=== PATIENT | male | born 1935 | race Caucasian/White ===

== ENCOUNTER 2019-07-16 14:11 | Outpatient (CLI) | payer MEDICARE, SELFPAY ==
--- NOTE | ~2019-07-16 | XR_ITS ---
XR knee RT min 4V, XR knee LT min 4V 07/16/2019 15:08 Indication: Osteoarthritis. Procedure: 4 views of each knee Comparison: No prior studies for comparison. Findings: There is osteoarthritis of the knees, most advanced in the medial and patellofemoral compar tments. Degenerative changes more advanced in the left knee. No acute fracture or traumatic malalignm ent. Small joint effusions. Impression: 1: Bilateral osteoarthritis of the knees, left greater than right. 2: Small effusions. Reviewed, dictated and finalized at location A. Impression: 1: Bilateral osteoarthritis of the knees, left greater than right. 2: Small effusions. Impression: 1: Bilateral osteoarthritis of the knees, left greater than right. 2: Small effusions.
--- NOTE | ~2019-07-16 | XR_ITS ---
EXAMINATION: XR hand BI arthritis min 3V DATE: 07/16/2019 15:08 INDICATION: Unspecified osteoarthritis, unspecified site. TECHNIQUE: 4 views of the right hand and 4 views of the left hand on 7 radiographs were obtained. COMPARISON: None. FINDINGS: RIGHT HAND: There is radial subluxation of third proximal phalanx with respect to the metacarpal. No fracture. There is mild osteoarthritis of triscaphe joint and first carpometacarpal joint. There is s evere osteoarthritis of third metacarpophalangeal joint and moderate osteoarthritis of second metacar pophalangeal joint. There is mild osteoarthritis of first and fourth metacarpophalangeal joints and m ost of the interphalangeal joints. LEFT HAND: Bone alignment is normal. No fracture. There is mild osteoarthritis of triscaphe joint and first carpometacarpal joint. There is moderate osteoarthritis of second and third metacarpophalangea l joints. There is mild osteoarthritis of first and fourth metacarpophalangeal joints and most of the interphalangeal joints. IMPRESSION: 1. Polyarticular osteoarthritis. Reviewed, dictated and finalized at location A.
--- NOTE | ~2019-07-16 | XR_ITS ---
EXAMINATION: XR hip BI 2V w AP pelvis DATE: 07/16/2019 15:08 INDICATION: Unspecified osteoarthritis, unspecified site. TECHNIQUE: An anteroposterior view of the pelvis and 2 views each hip were obtained. COMPARISON: None. FINDINGS: There is dextroscoliosis and severe spondylosis of lumbar spine. No fracture. There is mild osteoarthritis of the hips. IMPRESSION: 1. Mild osteoarthritis of the hips. Reviewed, dictated and finalized at location A.
[2019-07-16 14:36] LABS: Hematocrit 40.6 % (42.0-52.0); Mean Corpuscular Hemoglobin 28.6 pg (26-34); Mean Corpuscular Volume 89.4 fl (80-100); Mean Platelet Volume 10.3 fl (7.4-10.4); Platelet Count Result 290 k/mm3 (150-375); Red Blood Count 4.54 M/mm3 (4.6-6.20); Red Cell Distribution Width 12.8 % (11.5-14.5); White Blood Count 7.5 K/mm3 (4.5-10.0)
[2019-07-16 16:54] LABS: Alanine Aminotransferase 13 U/L (4-50); Albumin Level 4.8 g/dL (3.5-5.1); Alkaline Phosphatase 88 U/L (38-126); Aspartate Amino Transferase 28 U/L (17-59); Bilirubin,Total 0.2 mg/dL (0.2-1.3); Blood Urea Nitrogen 23 mg/dL (9-20); CRP 2.7 mg/dL (<1.0); Calcium 9.3 mg/dL (8.4-10.2); Carbon Dioxide 26 mmol/L (22-30); Chloride 102 mmol/L (98-107); Estimated Glomerular Filt Rate > 60; Glucose 99 mg/dL (75-110); Potassium 4.5 mmol/L (3.4-5.0); Sodium 135 mmol/L (137-145); Uric Acid 5.4 mg/dL (3.5-8.5)
[2019-07-16 16:55] LABS: Add Urine Microscopic? NO; Appearance Urine Clear (Clear); Bilirubin Urine Negative (Negative); Blood Urine Negative (Negative); Color Urine Yellow (Yellow); Glucose Urine UA Negative (Negative); Ketones Urine Negative (Negative); Leukocyte Esterase Ur Negative LEU/UL (Negative); Nitrate Urine Negative (Negative); Protein Urine Negative (Negative); Specific Grav Ur 1.019 (1.001-1.035); Urobilinogen Urine Negative mg/dL (<2.0)
[2019-07-16 17:19] LABS: Erythrocyte Sedimentation Rate 25 mm/hr (0-20)
[2019-07-19 11:55] LABS: Anti Cyclic Citrullinated Pept <16 Units (<20)
== END 2019-07-16 14:12 | disposition home or self-care (01) ==
PROVIDERS: Visit Provider Internal Medicine
DX: M25.9 Joint disorder, unspecified (principal); M16.0 Bilateral primary osteoarthritis of hip; M17.0 Bilateral primary osteoarthritis of knee; M25.461 Effusion, right knee; M25.462 Effusion, left knee
CPT/HCPCS: 36415; 73130; 73521; 73564; 80053; 81003; 84550; 85027; 85652; 86140; 86200

== ENCOUNTER 2021-01-04 13:06 | Outpatient (CLI) | payer MEDICARE, SELFPAY ==
[2021-01-04 13:17] LABS: Hematocrit 43.1 % (37.0-46.0); Hemoglobin 14.3 g/dL (12.4-15.3); Mean Corpuscular HGB Conc 33.2 g/dL (32.0-36.0); Mean Corpuscular Volume 90.5 fL (78.0-102.0); Mean Platelet Volume 10.5 fl (8.7-11.0); Platelet Count Result 232 K/mm3 (150-420); Red Blood Count 4.76 M/mm3 (4.70-6.10); Red Cell Distribution Width 12.3 % (11.6-14.4); White Blood Count 5.2 K/mm3 (4.8-10.8)
[2021-01-04 14:38] LABS: Alanine Aminotransferase 27 U/L (16-63); Albumin Level 4.1 g/dL (3.4-5.0); Alkaline Phosphatase 83 U/L (46-116); Anion Gap 12 mmol/L (8-16); Aspartate Amino Transferase 27 U/L (15-37); Bilirubin,Total 0.3 mg/dL (0.00-1.00); Blood Urea Nitrogen 22 mg/dL (7-18); Calcium 9.5 mg/dL (8.5-10.1); Carbon Dioxide 32 mmol/L (21-32); Chloride 99 mmol/L (98-108); Estimated Glomerular Filt Rate > 60; Glucose 93 mg/dL (70-99); Osmolality Calculated 299 mOsm/kg (285-295); Potassium 4.2 mmol/L (3.5-5.1); Prostate Specific Antigen 1.2 ng/mL (< OR = 4.0); Sodium 143 mmol/L (136-145); Total Protein 7.3 g/dL (6.4-8.2)
== END 2021-01-04 13:07 | disposition home or self-care (01) ==
LOC: CHSLAB 13:08
PROVIDERS: PCP Family Medicine; Visit Provider Family Medicine
DX: D64.9 Anemia, unspecified (principal); I10 Essential (primary) hypertension; R35.1 Nocturia; Z12.5 Encounter for screening for malignant neoplasm of prostate
CPT/HCPCS: 36415; 80053; 84153; 85027; G0103

== ENCOUNTER 2021-06-07 10:41 | Outpatient (CLI) | payer MEDICARE, SELFPAY ==
[2021-06-07 10:52] LABS: Hematocrit 42.2 % (37.0-46.0); Hemoglobin 13.9 g/dL (12.4-15.3); Mean Corpuscular HGB Conc 32.9 g/dL (32.0-36.0); Mean Corpuscular Hemoglobin 29.6 pg (27.0-31.0); Mean Platelet Volume 10.5 fl (8.7-11.0); Platelet Count Result 214 K/mm3 (150-420); Red Blood Count 4.69 M/mm3 (4.70-6.10); Red Cell Distribution Width 12.6 % (11.6-14.4); White Blood Count 4.8 K/mm3 (4.8-10.8)
== END 2021-06-07 10:42 | disposition home or self-care (01) ==
LOC: CHSLAB 10:45
PROVIDERS: PCP Family Medicine; Visit Provider Family Medicine
DX: D64.9 Anemia, unspecified (principal)
CPT/HCPCS: 36415; 85027

== ENCOUNTER 2021-07-02 18:38 | Emergency (ER) | payer MEDICARE, SELFPAY ==
[2021-07-02] VITALS (7 sets, daily range): BP systolic 134–153; BP diastolic 51–60; PULSE 75–82; RESP 15–24; TEMP 36.6; O2SAT 95–99
--- NOTE | ~2021-07-02 | XR_ITS ---
EXAMINATION: XR chest 2V 07/02/2021 19:21 INDICATION: Upper chest tightness PROCEDURE: 2 view chest COMPARISON: No prior studies for comparison. FINDINGS: The lungs are clear. The cardiomediastinal silhouette is within normal limits. There are no pleural effusions. There is no pneumothorax suspected. There is moderate thoracic spondylosis. IMPRESSION: 1: NO ACUTE CARDIOPULMONARY DISEASE. Reviewed, dictated and finalized at location A.
--- NOTE | ~2021-07-02 | CT_ITS ---
EXAMINATION: CTA chest PE protocol DATE: 07/02/2021 20:17 CDT INDICATION: Chest tightness. Elevated d-dimer. TECHNIQUE: Computed tomographic angiography (CTA) of the chest was performed with 100 mL Omnipaque-35 0 intravenous contrast. The dose-length product was 452.68 mGy-cm. Maximum intensity projection 3D-re constructions of the aorta and other arteries were constructed by the technologist on a separate work station. Automated exposure control and iterative reconstruction technique were employed. COMPARISON: Chest x-ray dated 07/02/2021. FINDINGS: Study is technically adequate without evidence for pulmonary embolism. There is atheroscler osis of the aorta without aneurysm. There is atherosclerosis of the coronary arteries. Heart size nor mal. No significant pleural or pericardial effusion. No thoracic lymphadenopathy. There are bilateral renal cysts, largest in the left kidney measuring 4.8 cm. There are a few subtle groundglass densiti es in the left upper lobe. There is dependent atelectasis. No endobronchial lesions. No pneumothorax. Moderate thoracic spondylosis. IMPRESSION: 1. No evidence for pulmonary embolism. 2: Subtle groundglass opacities of the left upper lobe which may represent sequela of acute or prior infectious/inflammatory process or small airways disease. Reviewed, dictated and finalized at location A. IMPRESSION: 1. No evidence for pulmonary embolism. 2: Subtle groundglass opacities of the left upper lobe which may represent seq uela of acute or prior infectious/inflammatory process or small airways disease .
--- NOTE | 2021-07-02 18:45 | ED.CHESTPAIN ---
HPI - Chest Pain General Chief Complaint: Chest Pain Stated Complaint: chest pain Time Seen by Provider: 07/02/21 18:45 Source: patient and family Mode of arrival: ambulatory Limitations: no limitations History of Present Illness HPI narrative: Patient states he was just doing some normal chores around the house at noon and had some chest tightness seemed to go to his back, he had some nausea, shortness of breath. No diaphoresis no vomiting, at noon his pain was an 8/10 now it has come down to 5. He had a 2nd episode while he was at a restaurant for dinner he had happened at rest with the same kind of symptoms of tightness and feeling queasy with some mild shortness of breath. He decided to drive here to the hospital for further evaluation and by the time he arrived it had subsided to where he just feels a little short of breath now. complaint: chest pain Onset (ago): hour(s) (2) Timing of current episode: episodic Prior episodes: Yes Onset: during exertion Pain location: substernal Pain radiation: back Pain scale (0-10): 5 Quality: tightness Relieving factors: rest Exacerbating factors: exertion Risk Factors Coronary artery disease risk factors: hyperlipidemia and hypertension Thoracic aortic dissection risk factors: none Related Data Home Medications Medication Instructions Recorded Confirmed aspirin 81 mg tablet,delayed 81 mg PO DAILY 05/05/19 07/02/21 release (Adult Low Dose Aspirin) calcium carbonate 600 mg calcium 600 mg PO DAILY 05/05/19 07/02/21 (1,500 mg) tablet (Calcium) cyanocobalamin (vitamin B-12) 100 mcg subcut DAILY 05/05/19 07/02/21 1,000 mcg/mL injection kit (B-12 Compliance) ferrous sulfate 325 mg (65 mg 325 mg PO DAILY 05/05/19 07/02/21 iron) tablet (Feosol) Allergies Allergy/AdvReac Type Severity Reaction Status Date / Time No Known Allergies Allergy Verified 07/02/21 18:55 Review of Systems Review of Systems: All systems reviewed & are unremarkable except as noted in HPI and below PMFSH Past Medical History Medical History (Updated 07/02/21 @ 20:34 by Levy Jeffrey MD) Anemia BPH associated with nocturia Hypertension Osteoarthritis Family History Family History Mother Arthritis Heart failure Father Enlarged heart Social History Social History Tobacco type: cigarettes Additional smoking assessment comments: Quit 1999. 40 pk yr history Exam Const: General: healthy appearing, no acute distress and alert Nutritional Appearance: well nourished and thin Orientation/consciousness: patient oriented x3 Limitations: no limitations HENMT: Head: normal to inspection Ears: external ears normal General nose exam: Normal external nose present Mouth: Yes moist mucous membranes Eyes: Conjunctivae: conjunctivae normal Pupils: Equal, round and reactive pupils present EOM: EOMs intact bilaterally Neck: Neck: normal visual inspection Chest: Chest palpation & inspection: normal inspection of the chest and no tenderness Resp: Effort & Inspection: normal respiratory effort Auscultation: crackles on the right (mild) at the base Cardio: Rate: regular rate Rhythm: regular rhythm GI: GI Palp: Yes Soft to palpation and No Tenderness to palpation present (GI) Auscultation: normal bowel sounds Back/Spine/Pelvis: Cervical Spine: cervical ROM normal Thoracic/Lumbar Spine: thoraco-lumbar ROM normal Skin: General skin exam: normal color Rashes: no rashes Neuro: General: patient oriented x3, moves all extremities, no focal motor deficits and CN's II-XI intact bilaterally Speech: normal speech Gait exam (Neuro): Normal gait present Extrem: General: normal to inspection and no clubbing, cyanosis or edema Psych: Mental Status: mental status grossly normal Affect: normal affect Attitude: cooperative Course Vital Signs Vital signs: Vital S
--- NOTE | 2021-07-02 18:46 | ECG_ITS ---
Measurements Intervals Rickman Rate: 82 P: 33 MD: 175 QRS: -68 QRSD: 146 T: 34 QT: 380 QTc: 445 Interpretive Statements SINUS RHYTHM RIGHT BUNDLE BRANCH BLOCK LEFT ANTERIOR FASCICULAR BLOCK BASELINE ARTIFACT- I, II, III, AVR, V1, V3-V6 ABNORMAL ECG Electronically Signed On 07-02-2021 21:08:08 CDT by Roderick Corado D.O.
[2021-07-02] MEDS: ASPIRIN 81 MG CHEWABLE TABLET 243 MG PO (19:12)
[2021-07-02 19:21] LABS: Hematocrit 39.6 % (37.0-46.0); Hemoglobin 13.1 g/dL (12.4-15.3); Mean Corpuscular HGB Conc 33.1 g/dL (32.0-36.0); Mean Corpuscular Volume 90.6 fL (78.0-102.0); Mean Platelet Volume 10.3 fl (8.7-11.0); Platelet Count Result 170 K/mm3 (150-420); Red Blood Count 4.37 M/mm3 (4.70-6.10); Red Cell Distribution Width 12.5 % (11.6-14.4); White Blood Count 4.6 K/mm3 (4.8-10.8)
[2021-07-02 19:34] LABS: Prothrombin Time 10.2 Seconds (9.50-12.10)
[2021-07-02 19:38] LABS: Alanine Aminotransferase 21 U/L (16-63); Albumin Level 3.7 g/dL (3.4-5.0); Alkaline Phosphatase 63 U/L (46-116); Anion Gap 5 mmol/L (8-16); Aspartate Amino Transferase 15 U/L (15-37); Bilirubin,Total 0.2 mg/dL (0.00-1.00); Blood Urea Nitrogen 16 mg/dL (7-18); Calcium 8.7 mg/dL (8.5-10.1); Carbon Dioxide 30 mmol/L (21-32); Chloride 103 mmol/L (98-108); Estimated Glomerular Filt Rate > 60; Glucose 110 mg/dL (70-99); Osmolality Calculated 288 mOsm/kg (285-295); Potassium 3.8 mmol/L (3.5-5.1); Sodium 138 mmol/L (136-145); Total Protein 6.6 g/dL (6.4-8.2); Troponin I 10.1 ng/L (0.00-60.4)
[2021-07-02 19:40] LABS: D Dimer 0.62 mg/L (0.19-0.50)
[2021-07-02 19:52] LABS: Band Neutrophils Percent 0 % (0-6); Eosinophils Absolute Manual 0.13 K/mm3 (0.02-0.5); Eosinophils Percent Manual 3 % (1-6); Lymphocytes Absolute Manual 0.41 K/mm3 (1.1-4.5); Lymphocytes Percent Manual 9 % (18-44); Monocytes Absolute Manual 0.64 K/mm3 (0.1-0.90); Monocytes Percent Manual 14 % (3-9); Neutrophils Percent Manual 74 % (46-73); Platelet Estimate Adequate (Adequate); Total Cells Counted 100
== END 2021-07-02 20:47 | disposition home or self-care (01) ==
PROVIDERS: Emergency Provider Emergency Medicine; PCP Family Medicine
DX: I20.9 Angina pectoris, unspecified (principal); I10 Essential (primary) hypertension; Z87.891 Personal history of nicotine dependence
CPT/HCPCS: 36415; 71046; 71275; 80053; 84484; 85025; 85380; 85610; 93005; 99284; A9270; Q9967

== ENCOUNTER 2021-07-12 15:04 | Outpatient (CLI) | payer MEDICARE, SELFPAY ==
[2021-07-12 15:15] LABS: Hematocrit 39.2 % (37.0-46.0); Hemoglobin 13.3 g/dL (12.4-15.3); Mean Corpuscular HGB Conc 33.9 g/dL (32.0-36.0); Mean Corpuscular Hemoglobin 29.8 pg (27.0-31.0); Mean Corpuscular Volume 87.7 fL (78.0-102.0); Mean Platelet Volume 10.5 fl (8.7-11.0); Platelet Count Result 193 K/mm3 (150-420); Red Blood Count 4.47 M/mm3 (4.70-6.10); Red Cell Distribution Width 12.4 % (11.6-14.4); White Blood Count 5.7 K/mm3 (4.8-10.8)
[2021-07-12 15:45] LABS: Thyroid Stimulating Hormone Reflex 4.01 u/IU/mL (0.36-3.74)
[2021-07-12 15:53] LABS: Free T4 Free Thyroxine Reflex 1.05 ng/dL (0.76-1.46)
[2021-07-12 16:03] LABS: Alanine Aminotransferase 30 U/L (16-63); Albumin Level 3.8 g/dL (3.4-5.0); Alkaline Phosphatase 70 U/L (46-116); Anion Gap 8 mmol/L (8-16); Aspartate Amino Transferase 28 U/L (15-37); Bilirubin,Total 0.3 mg/dL (0.00-1.00); Blood Urea Nitrogen 27 mg/dL (7-18); Calcium 8.6 mg/dL (8.5-10.1); Carbon Dioxide 26 mmol/L (21-32); Chloride 104 mmol/L (98-108); Estimated Glomerular Filt Rate > 60; Glucose 105 mg/dL (70-99); Osmolality Calculated 291 mOsm/kg (285-295); Potassium 4.4 mmol/L (3.5-5.1); Total Protein 6.9 g/dL (6.4-8.2); Vitamin B12 1306 pg/mL (193-986)
[2021-07-12 16:08] LABS: Sodium 138 mmol/L (136-145)
[2021-07-13 14:22] LABS: Folic Acid > 24.0 ng/mL (8.6->20)
== END 2021-07-12 15:05 | disposition home or self-care (01) ==
LOC: CHSLAB 15:06
PROVIDERS: PCP Family Medicine; Visit Provider Family Medicine
DX: U09.9 Post COVID-19 condition, unspecified (principal); E11.9 Type 2 diabetes mellitus without complications; E53.8 Deficiency of other specified B group vitamins
CPT/HCPCS: 36415; 80053; 82607; 82746; 84439; 84443; 85027

== ENCOUNTER 2021-08-01 12:10 | Outpatient (CLI) | payer MEDICARE, SELFPAY ==
--- NOTE | ~2021-08-01 | XR_ITS ---
XR chest 2V DATE: 08/01/2021 12:25 INDICATION: Cough TECHNIQUE: PA and lateral views COMPARISON: 07/02/2021 CT pulmonary scan 07/02/2021 PA and lateral chest FINDINGS: Normal heart size. Aortic calcification and mild tortuosity. No hilar or mediastinal enlarg ement. No pulmonary infiltrate or consolidation, pleural effusion or pulmonary vascular congestion or pneumo thorax is detected. Degenerative changes of the lower cervical, thoracic and particularly the upper lumbar spine. IMPRESSION: No active cardiopulmonary disease Reviewed, dictated and finalized at location B.
[2021-08-01 12:45] LABS: Add Urine Microscopic? NO; Appearance Urine Clear (Clear); Bilirubin Urine Negative (Negative); Blood Urine Negative (Negative); Color Urine Yellow (Yellow); Glucose Urine UA Negative (Negative); Ketones Urine Negative (Negative); Leukocyte Esterase Ur Negative LEU/UL (Negative); Nitrate Urine Negative (Negative); Protein Urine Negative (Negative); Specific Grav Ur 1.015 (1.010-1.020); Urobilinogen Urine 0.2 mg/dL (0.2-1.0)
[2021-08-01 13:23] LABS: Iron 94 ug/dL (65-175); Magnesium 1.9 mg/dL (1.8-2.4); Vitamin B12 1372 pg/mL (193-986)
[2021-08-05 07:30] LABS: Vitamin D 25 Hydroxy 38 ng/mL (30-100)
== END 2021-08-01 12:11 | disposition home or self-care (01) ==
LOC: CHSIMG 12:12
PROVIDERS: PCP Family Medicine; Visit Provider Nurse Practitioner Family
DX: R05.9 Cough, unspecified (principal); D64.9 Anemia, unspecified; R53.83 Other fatigue; Z79.899 Other long term (current) drug therapy
CPT/HCPCS: 36415; 71046; 81003; 82306; 82607; 83540; 83735

== ENCOUNTER 2021-08-15 08:01 | Outpatient (CLI) | payer MEDICARE, SELFPAY ==
--- NOTE | 2021-08-15 08:07 | EST_ITS ---
Patient Info Name: Dagoberto Hall Age: 85 years : 1935 Gender: Male Ht: 69 in Wt: 160 lbs BSA: 1.88 m2 HR: 66 bpm BP: 133 / 59 mmHg Heart Rhythm: Sinus Rhythm Technical Quality: Good Exam Date: 08/15/2021 8:29 AM Exam Location: [facility] Patient Status: Outpatient Admit Date: 08/15/2021 Staff Ordering Physician: Claudette Sanches NP Attending Provider: Claudette Sanches NP Exercise Technologist: Belem Long CRT Exercise Physician: Gisselle Lopes CEP Exam Type: CA stress test treadmill Study Info Indications SOB - A treadmill exercise stress test was performed. History/Risk Factors Hypertension: Yes Family History: Coronary Artery Disease History/Risk Factors Family History. Hypertension. Half-Way COVID. Summary 1. 1. Negative Anjel exercise stress test for ischemic ST changes by ECG criteria. 2. 2. Poor functional capacity, achieving 4 METs of workload. 3. 3. Hypertensive response to exercise. 4. 4. Appropriate HR response to exercise. 5. 5. Appropriate HR recovery at 1 minute post exercise. 6. 6. No imaging with stress testing. Protocol: Anjel Stress ECG Details Stage: REST Duration (min): 1 min : 5 sec Speed (mph): 0.0 Grade (%): 0 HR (bpm): 66 SBP (mmHg): 133 DBP (mmHg): 59 METS: --- Stage: REST Duration (min): 5 min : 55 sec Speed (mph): 0.0 Grade (%): 0 HR (bpm): 76 SBP (mmHg): 133 DBP (mmHg): 59 METS: --- Stage: STAGE 1 Duration (min): 1 min : 0 sec Speed (mph): 1.7 Grade (%): 10 HR (bpm): 95 SBP (mmHg): 133 DBP (mmHg): 59 METS: --- Stage: STAGE 1 Duration (min): 2 min : 0 sec Speed (mph): 1.7 Grade (%): 10 HR (bpm): 113 SBP (mmHg): 133 DBP (mmHg): 59 METS: --- Stage: STAGE 1 Duration (min): 2 min : 59 sec Speed (mph): 1.7 Grade (%): 10 HR (bpm): 122 SBP (mmHg): 216 DBP (mmHg): 60 METS: --- Stage: RECOVERY Duration (min): 1 min : 0 sec Speed (mph): 0.0 Grade (%): 0 HR (bpm): 112 SBP (mmHg): 216 DBP (mmHg): 60 METS: --- Stage: RECOVERY Duration (min): 2 min : 0 sec Speed (mph): 0.0 Grade (%): 0 HR (bpm): 86 SBP (mmHg): 219 DBP (mmHg): 70 METS: --- Stage: RECOVERY Duration (min): 3 min : 0 sec Speed (mph): 0.0 Grade (%): 0 HR (bpm): 72 SBP (mmHg): 219 DBP (mmHg): 70 METS: --- Stage: RECOVERY Duration (min): 4 min : 0 sec Speed (mph): 0.0 Grade (%): 0 HR (bpm): 80 SBP (mmHg): 219 DBP (mmHg): 70 METS: --- Stage: RECOVERY Duration (min): 5 min : 0 sec Speed (mph): 0.0 Grade (%): 0 HR (bpm): 79 SBP (mmHg): 190 DBP (mmHg): 67 METS: --- Stage: RECOVERY Duration (min): 6 min : 0 sec Speed (mph): 0.0 Grade (%): 0 HR (bpm): 80 SBP (mmHg): 190 DBP (mmHg): 67 METS: --- Stage:
== END 2021-08-15 08:02 | disposition home or self-care (01) ==
LOC: CHSCARD 08:03
PROVIDERS: PCP Nurse Practitioner Family; Visit Provider Nurse Practitioner Family
DX: U09.9 Post COVID-19 condition, unspecified (principal); R53.1 Weakness; R53.83 Other fatigue; R06.02 Shortness of breath
CPT/HCPCS: 93017

== ENCOUNTER 2022-04-10 08:36 | Outpatient (CLI) | payer MEDICARE, SELFPAY ==
--- NOTE | 2022-04-12 10:37 | WPDHOLTEREM ---
Holter/Event Monitor Holter/Event Monitor Date of procedure: 04/10/22 Holter/Event Procedure: 48 Hr Holter Monitor Indications: Tachycardia Conclusion: 1. 48 hour holter monitor on 04/10/22. 2. Predominant rhythm is sinus rhythm. HR range 48-130 bpm; average HR 76 bpm. 3. There are 99 premature supraventricular complexes and 6 supraventricular couplets. There are 6 episodes of atrial tachycardia/SVT, fastest at 150 bpm and longest lasting 8 beats. 4. No premature ventricular complexes. No ventricular tachycardia. 5. No sinoatrial or atrioventricular blocks. No significant pauses greater than 2 seconds. 6. No symptoms available for correlation.
== END 2022-04-10 08:37 | disposition home or self-care (01) ==
LOC: CHSCARD 08:37
PROVIDERS: PCP Family Medicine; Visit Provider Family Medicine
DX: R00.0 Tachycardia, unspecified (principal)
CPT/HCPCS: 93225; 93226

== ENCOUNTER 2022-06-26 14:49 | Emergency (ER) | payer MEDICARE, SELFPAY ==
--- NOTE | ~2022-06-26 | XR_ITS ---
XR abdomen/kub 1V 06/26/2022 15:23 Indication: Patient swallowed a screw. Procedure: KUB Comparison: No prior studies for comparison. Findings: Severe lumbar spondylosis. Nonobstructive bowel gas pattern. No radiopaque foreign bodies i dentified. There is a small nonobstructing right renal stone. Visualized lung bases are unremarkable. Impression: 1: Right nephrolithiasis. Reviewed, dictated and finalized at location B. Impression: 1: Right nephrolithiasis.
--- NOTE | ~2022-06-26 | XR_ITS ---
EXAMINATION: XR chest 2V Exam Date/Time: 06/26/2022 15:08 CDT HISTORY: SWALLOWED A SCREW; REVIEW FOR FOREIGN BODY. Comparison: 08/01/2021. RESULT: Lines, tubes, and devices: None. Lungs and pleura: Senescent change, otherwise clear. Cardiomediastinal silhouette: Stable. Other: No acute osseous or upper abdominal finding. IMPRESSION: No acute cardiopulmonary process. No radiopaque foreign body. Reviewed, dictated and finalized at location K.
[2022-06-26 14:54] VITALS: BP 132/67; PULSE 100; RESP 20; TEMP 36.8; O2SAT 96
--- NOTE | 2022-06-26 15:42 | ED.GENADULT ---
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 When he went to grab the screws to install them he only had 2 screws present and is concerned that he might have swallowed 1. He does not recall any pain in his throat, or anywhere else, does not hurt anywhere, is having no difficulty breathing, just wants to make sure he did not swallow it. No other complaints. Related Data Home Medications Medication Instructions Recorded Confirmed aspirin 81 mg tablet,delayed 81 mg PO DAILY 05/05/19 08/01/21 release (Adult Low Dose Aspirin) calcium carbonate 600 mg calcium 600 mg PO DAILY 05/05/19 08/01/21 (1,500 mg) tablet (Calcium) cyanocobalamin (vitamin B-12) 100 mcg subcut DAILY 05/05/19 08/01/21 1,000 mcg/mL injection kit (B-12 Compliance) ferrous sulfate 325 mg (65 mg 325 mg PO DAILY 05/05/19 08/01/21 iron) tablet (Feosol) enalapril maleate 20 mg tablet 20 mg PO DAILY 06/26/22 multivit with minerals-iron 18 1 tablet PO DAILY 06/26/22 06/26/22 mg-folic ac 400 mcg-vit K 25 mcg tablet (Adults Multivitamin) pravastatin 20 mg tablet 20 mg PO DAILY 06/26/22 Allergies Allergy/AdvReac Type Severity Reaction Status Date / Time No Known Allergies Allergy Verified 06/26/22 15:13 Review of Systems Review of Systems: All systems reviewed & are unremarkable except as noted in HPI and below ( HPI) PMFSH Past Medical History Medical History Anemia BPH associated with nocturia Hypertension Osteoarthritis Family History Family History Mother Arthritis Heart failure Father Enlarged heart Social History Social History Smoking status: Former smoker Tobacco type: cigarettes Additional smoking assessment comments: Quit 2000. 40 pk yr history Lack of Transportation: No Lack of Food: Never True Current Housing: I Have Housing Concerned About Future Housing: No Difficulty Paying Gas/Electric Bills: No Difficulty Paying for Meds: No Currently Unemployed: No Education: High School Diploma/GED Difficulty w/ Childcare or Family Care: No Exam Narrative: pleasant, well-appearing child, appropriately interactive, no acute distress Const: General: cooperative, healthy appearing, comfortable, no acute distress, well developed, alert, awake and Physically active Orientation/consciousness: patient oriented x3 HENMT: Head: normal to inspection, normocephalic and atraumatic Ears: hearing grossly normal bilaterally and external ears normal Face/Nose/Sinus: Normal external nose present, Normal nares present, Normal nasal mucous membranes and turbinates present and normal facial exam Face and sinus: normal facial exam Mouth: Yes Normal oral and palatal mucosa present, Yes lip normal, Yes tongue normal, Yes oropharynx normal and Yes moist mucous membranes Teeth and gingiva: dentition normal Throat: posterior oropharynx normal and tonsils normal ( erythematous) Eyes: General: appearance normal, both eyes and all related structures Alignment and Position: alignment normal and position normal Periorbital: periorbital findings normal Eyelids: eyelids normal Conjunctivae: conjunctivae normal Sclera: sclerae normal Cornea: corneas normal Pupils: Equal, round and reactive pupils present EOM: EOMs intact bilaterally Neck: Neck: normal visual inspect
== END 2022-06-26 16:07 | disposition home or self-care (01) ==
PROVIDERS: Emergency Provider Emergency Medicine; PCP Pediatrics
DX: Z03.821 Encounter for observation for suspected ingested foreign body ruled out (principal); I10 Essential (primary) hypertension; Z87.891 Personal history of nicotine dependence
CPT/HCPCS: 71046; 74018; 99283

== ENCOUNTER 2022-10-11 15:41 | Outpatient (CLI) | payer MEDICARE, SELFPAY ==
[2022-10-11 16:15] LABS: Hematocrit 37.2 % (42.0-52.0); Hemoglobin 12.1 g/dL (14.0-18.0); Mean Corpuscular HGB Conc 32.5 g/dl (32-36); Mean Corpuscular Hemoglobin 29.4 pg (26-34); Mean Corpuscular Volume 90.5 fl (80-100); Mean Platelet Volume 10.5 fl (7.4-10.4); Platelet Count Result 216 k/mm3 (150-375); Red Blood Count 4.11 M/mm3 (4.6-6.20); Red Cell Distribution Width 13.1 % (11.5-14.5); White Blood Count 4.6 K/mm3 (4.5-10.0)
[2022-10-11 16:34] LABS: Alanine Aminotransferase 17 U/L (6-50); Albumin Level 4.1 g/dL (3.5-5.1); Alkaline Phosphatase 46 U/L (38-126); Anion Gap 6 mmol/L (8-16); Aspartate Amino Transferase 28 U/L (17-59); Bilirubin,Total 0.5 mg/dL (0.2-1.3); Blood Urea Nitrogen 25 mg/dL (9-20); CRP 1.1 mg/dL (<1.0); Calcium 8.9 mg/dL (8.4-10.2); Carbon Dioxide 28 mmol/L (22-30); Chloride 105 mmol/L (98-107); Estimated Glomerular Filt Rate > 60; Glucose 101 mg/dL (65-110); Potassium 3.8 mmol/L (3.4-5.0); Sodium 139 mmol/L (137-145)
[2022-10-11 16:39] LABS: Erythrocyte Sedimentation Rate 19 mm/hr (0-20)
[2022-10-16 17:22] LABS: Immunoglobulin A 152 mg/dL (70-320); TTG IGA AB <1.0 U/mL (<15.0)
[2022-10-18 22:42] LABS: Calprotectin, Stool 1630 mcg/g
[2022-10-20 19:36] LABS: Pancreatic Elastase, Stool 161 mcg/g
== END 2022-10-11 15:42 | disposition home or self-care (01) ==
LOC: ANHLAB 15:41
PROVIDERS: PCP Family Medicine; Visit Provider Nurse Practitioner
DX: R63.4 Abnormal weight loss (principal); R19.4 Change in bowel habit; K52.9 Noninfective gastroenteritis and colitis, unspecified; R53.83 Other fatigue
CPT/HCPCS: 36415; 80053; 82653; 82784; 83993; 85027; 85652; 86140; 86364

== ENCOUNTER 2022-11-02 07:00 | Outpatient (NON) | payer MEDICARE, SELFPAY | END 2022-11-02 07:01 | disposition home or self-care (01) | LOC: ANHLAB 11-03 09:26 | PROVIDERS: PCP Family Medicine; Visit Provider Internal Medicine Gastroenterology | DX: R19.4 Change in bowel habit (principal) | CPT/HCPCS: 88305 ==

== ENCOUNTER 2022-11-02 09:49 | Day surgery (SDC) | payer MEDICARE, SELFPAY ==
[2022-10-19 11:52] VITALS: BMI 21.6
--- NOTE | 2022-11-01 16:02 | PM.HPGS ---
History of Present Illness History of Present Illness Consent: Risks, benefits, and alternatives have been discussed and questions answered. Patient agrees to proceed with procedure. Chief complaint: Noninfective Gastroenteritis & Colitis, ABN Weight Narrative: Dagoberto Hall is a 87 year old male With a change in bowel habits that have been going on since May.? Stool culture, c diff, fecal fat was normal, cryptosporidium, O&P were negative.?Fecal lactoferrin was positive. Takes 3 Imodium tablets each morning along with fiber supplement. This helps somewhat Review of Systems Review of Systems: All systems reviewed & are unremarkable except as noted in HPI and below PMFSH Past Medical History Medical History Anemia BPH associated with nocturia Change in bowel habits Chronic diarrhea Hypertension Hypothyroidism Osteoarthritis Weight loss Family History Family History Mother Arthritis Heart failure Father Enlarged heart Social History Social History Smoking status: Former smoker Tobacco type: cigarettes Additional smoking assessment comments: Quit 1999. 40 pk yr history Substance use type: does not use Lack of Transportation: No Lack of Food: Never True Current Housing: I Have Housing Concerned About Future Housing: No Difficulty Paying Gas/Electric Bills: No Difficulty Paying for Meds: No Currently Unemployed: No Education: High School Diploma/GED Difficulty w/ Childcare or Family Care: No Spiritual care concerns: No Meds Home Medications and Allergies Home Medications Medication Instructions Recorded Confirmed Type calcium carbonate 600 mg calcium 600 mg PO DAILY 05/05/19 11/02/22 History (1,500 mg) tablet (Calcium) ferrous sulfate 325 mg (65 mg 325 mg PO DAILY 05/05/19 11/02/22 History iron) tablet (Feosol) albuterol sulfate 90 mcg/actuation 1 puff inhalation Q4H PRN 08/01/21 10/24/22 Rx aerosol inhaler (Ventolin HFA) shortness of breath or wheezing #8 grams cholecalciferol (vitamin D3) 50 50 mcg PO DAILY #90 caps 12/23/21 11/02/22 Rx mcg (2,000 unit) capsule finasteride 5 mg tablet 5 mg PO DAILY #90 tabs 03/07/22 11/02/22 Rx hydrochlorothiazide 25 mg tablet 25 mg PO DAILY #90 tabs 03/07/22 11/02/22 Rx enalapril maleate 20 mg tablet 20 mg PO DAILY 06/26/22 11/02/22 History multivit with minerals-iron 18 1 tablet PO DAILY 06/26/22 11/02/22 History mg-folic ac 400 mcg-vit K 25 mcg tablet (Adults Multivitamin) pravastatin 20 mg tablet 20 mg PO DAILY 06/26/22 10/24/22 History amlodipine 2.5 mg tablet See Rx Instructions .Route 09/01/22 11/02/22 Rx .COMPLEX #100 tabs colestipol 1 gram tablet 1 g PO BID #60 tabs 10/11/22 11/02/22 Rx [id number] 2 cap PO QID #360 caps 10/23/22 11/02/22 Rx 36,000-114,000-180,000 unit capsule,delay rel (Creon) vitamin B complex (B 1 tablet PO DAILY 11/02/22 11/02/22 History Complex-Vitamin B12 tablet) Allergies Allergy/AdvReac Type Severity Reaction Status Date / Time No Known Allergies Allergy Verified 11/02/22 10:49 Exam Const: General: alert Orientation/consciousness: patient oriented x3 Resp: Auscultation: clear to auscultation bilaterally Cardio: Rhythm: regular rhythm GI: GI Palp: Yes Soft to palpation and No Tenderness to palpation present (GI) Neuro: General: patient oriented x3 Assessment and Plan Assessment and plan (1) Change in bowel habits: Code(s): R19.4 - Change in bowel habit Status: Acute Assessment and Plan: Colonoscopy with possible biopsy or polypectomy or cautery or injection of substances.
--- NOTE | 2022-11-02 09:44 | WPDANESEPPF ---
Anes - Initial Pre Proc Eval Procedure: Operation Date: 11/02/22 12:00 Proposed Procedures p Diagnostic Colonoscopy - Satnam Harding MD Date/Time: 11/02/22 09:44 Surgeon: Satnam Harding MD Pre Op Diagnosis: Noninfective Gastroenteritis & Colitis, ABN Weight Patient Data Age: 87 Gender: M Height: 1.75 m Weight: 66 kg Allergies Allergy/AdvReac Type Severity Reaction Status Date / Time No Known Allergies Allergy Verified 11/02/22 10:49 Home Medications Medication Instructions Recorded Confirmed Type calcium carbonate 600 mg calcium 600 mg PO DAILY 05/05/19 11/02/22 History (1,500 mg) tablet (Calcium) ferrous sulfate 325 mg (65 mg 325 mg PO DAILY 05/05/19 11/02/22 History iron) tablet (Feosol) albuterol sulfate 90 mcg/actuation 1 puff inhalation Q4H PRN 08/01/21 10/24/22 Rx aerosol inhaler (Ventolin HFA) shortness of breath or wheezing #8 grams cholecalciferol (vitamin D3) 50 50 mcg PO DAILY #90 caps 12/23/21 11/02/22 Rx mcg (2,000 unit) capsule finasteride 5 mg tablet 5 mg PO DAILY #90 tabs 03/07/22 11/02/22 Rx hydrochlorothiazide 25 mg tablet 25 mg PO DAILY #90 tabs 03/07/22 11/02/22 Rx enalapril maleate 20 mg tablet 20 mg PO DAILY 06/26/22 11/02/22 History multivit with minerals-iron 18 1 tablet PO DAILY 06/26/22 11/02/22 History mg-folic ac 400 mcg-vit K 25 mcg tablet (Adults Multivitamin) pravastatin 20 mg tablet 20 mg PO DAILY 06/26/22 10/24/22 History amlodipine 2.5 mg tablet See Rx Instructions .Route 09/01/22 11/02/22 Rx .COMPLEX #100 tabs colestipol 1 gram tablet 1 g PO BID #60 tabs 10/11/22 11/02/22 Rx [id number] 2 cap PO QID #360 caps 10/23/22 11/02/22 Rx 36,000-114,000-180,000 unit capsule,delay rel (Creon) vitamin B complex (B 1 tablet PO DAILY 11/02/22 11/02/22 History Complex-Vitamin B12 tablet) Patient hx anesthesia problems: none Family hx anesthesia problems: none Results Review: All pre-operative results and documents have been reviewed as part of the pre-operative evaluation. [facility] Past Medical History Medical History Anemia BPH associated with nocturia Change in bowel habits Chronic diarrhea Hypertension Hypothyroidism Osteoarthritis Weight loss Family History Family History Mother Arthritis Heart failure Father Enlarged heart Social History Social History Smoking status: Former smoker Tobacco type: cigarettes Additional smoking assessment comments: Quit 1999. 40 pk yr history Substance use type: does not use Lack of Transportation: No Lack of Food: Never True Current Housing: I Have Housing Concerned About Future Housing: No Difficulty Paying Gas/Electric Bills: No Difficulty Paying for Meds: No Currently Unemployed: No Education: High School Diploma/GED Difficulty w/ Childcare or Family Care: No Spiritual care concerns: No Anes - Eval Final PreProcedure Day of Procedure 11/02/22 09:44 Patient weight: normal Heart: regular rate and rhythm Lungs: clear to auscultation and normal air movement Airway: Mallampati scale class II Neurological: alert and oriented Last oral intake: >/= 8 hours ASA classification: III Emergent: no Anesthetic plan: proceed Anesthesia type and monitoring: general GIVS and standard monitoring Results Review: All pre-operative results and documents have been reviewed as part of the pre-operative evaluation. Informed Consent: The patient's anesthetic plan and its attendant risks and benefits were discussed with the patient/family/POA. Questions were solicited and answers provided to the satisfaction of the patient/family/POA.
[2022-11-02 11:02] VITALS: BP 142/53; PULSE 60; RESP 18; TEMP 36.6; O2SAT 99; BMI 21.1
[2022-11-02] MEDS: LACTATED RINGERS 1,000 ML 150 ML IV CONT (11:12)
[2022-11-02 11:38] VITALS: BP 120/52; PULSE 62; RESP 16; TEMP 36.3; O2SAT 98
[2022-11-02 11:48] VITALS: BP 137/58; PULSE 60; RESP 16; O2SAT 98
--- NOTE | 2022-11-02 11:49 | WPDANESPN ---
Anes - Prog Note Post-Op Date/Time: 11/02/22 11:49 Cardiovascular status: normal Respiratory status: normal Airway patency: baseline Mental status: baseline Post-Op hydration status: normal Vital Signs: Last Vital Signs Temp 36.3 C L 11/02/22 11:38 Pulse 62 11/02/22 11:38 Resp 16 11/02/22 11:38 BP 120/52 L 11/02/22 11:38 Pulse Ox 98 11/02/22 11:38 O2 Del Method Room Air 11/02/22 11:38 Pain Score (VAS): 0 I/O: Intake & Output 11/01/22 11/02/22 11/02/22 23:59 07:59 15:59 Intake Total 300 Balance 300 Post-procedural complaints: none Patient Feedback: Patient satisfied with anesthetic care. Other Findings: Patient vital signs back to baseline. Patient denies nausea and vomiting. Patient's pain under control. Patient OK for discharge.
[2022-11-02 11:58] VITALS: BP 128/57; PULSE 60; RESP 16; O2SAT 98
== END 2022-11-02 12:14 | disposition home or self-care (01) ==
PROVIDERS: PCP Family Medicine; Visit Provider Internal Medicine Gastroenterology
PROC: 0DJD8ZZ Inspection of Lower Intestinal Tract, Via Natural or Artificial Opening Endoscopic (ICD-10-PCS; CPT 45378; principal; 2022-11-02 12:00)
DX: K59.1 Functional diarrhea (principal); K57.30 Diverticulosis of large intestine without perforation or abscess without bleeding
CPT/HCPCS: 45380

== ENCOUNTER 2023-03-03 20:30 | Emergency (ER) | payer MEDICARE, SELFPAY ==
[2023-03-03] VITALS (17 sets, daily range): BP systolic 121–129; BP diastolic 59–71; PULSE 92–107; RESP 12–24; TEMP 36.6; O2SAT 90–97
--- NOTE | 2023-03-03 20:53 | ED.GENADULT ---
HPI - General Adult General Chief complaint: Weakness Stated complaint: Weakness/Diarrhea Time Seen by Provider: 03/03/23 20:39 History of Present Illness HPI narrative: Maxi is a very pleasant 87 year old gentleman with a PMH of chronic pancreatitis, chronic diarrhea, OA, anemia, BPH, HTN and arthritis that came in with his son with a couple days of watery diarrhea, weakness and fatigue. His chronic diarrhea did get better when he stopped OTC sinus medicine, despite not having access to his creon. However, his rhinorrhea was worse a few days ago so he started an OTC sinus med and has had several episodes of watery diarrhea since. No melena, hematochezia, CP, dyspnea, vomiting, fevers or falls reported. Related Data Home Medications Medication Instructions Recorded Confirmed calcium carbonate 600 mg calcium 600 mg PO DAILY 05/05/19 12/05/22 (1,500 mg) tablet (Calcium) ferrous sulfate 325 mg (65 mg 325 mg PO DAILY 05/05/19 12/05/22 iron) tablet (Feosol) enalapril maleate 20 mg tablet 20 mg PO DAILY 06/26/22 12/05/22 multivit with minerals-iron 18 1 tablet PO DAILY 06/26/22 12/05/22 mg-folic ac 400 mcg-vit K 25 mcg tablet (Adults Multivitamin) pravastatin 20 mg tablet 20 mg PO DAILY 06/26/22 12/05/22 vitamin B complex (B 1 tablet PO DAILY 11/02/22 12/05/22 Complex-Vitamin B12 tablet) Allergies Allergy/AdvReac Type Severity Reaction Status Date / Time No Known Allergies Allergy Verified 03/03/23 20:38 Review of Systems Review of Systems: All systems reviewed & are unremarkable except as noted in HPI and below PMFSH Past Medical History Medical History Anemia BPH associated with nocturia Change in bowel habits Chronic diarrhea Hypertension Hypothyroidism Osteoarthritis Weight loss Family History Family History Mother Arthritis Heart failure Father Enlarged heart Social History Social History Smoking status: Former smoker Tobacco type: cigarettes Additional smoking assessment comments: Quit 1999. 40 pk yr history Substance use type: does not use Lack of Transportation: No Lack of Food: Never True Current Housing: I Have Housing Concerned About Future Housing: No Difficulty Paying Gas/Electric Bills: No Difficulty Paying for Meds: No Currently Unemployed: No Education: High School Diploma/GED Difficulty w/ Childcare or Family Care: No Spiritual care concerns: No Exam Const: General: cooperative, healthy appearing, comfortable, no acute distress, well developed, alert, awake and Physically active Orientation/consciousness: oriented to person, oriented to place and oriented to time HENMT: Head: normal to inspection, normocephalic and atraumatic Ears: hearing grossly normal bilaterally and external ears normal Face/Nose/Sinus: Normal external nose present Other: dry mucous membranes Eyes: General: appearance normal, both eyes and all related structures Periorbital: periorbital findings normal Sclera: sclerae normal Pupils: Equal, round and reactive pupils present Neck: Neck: normal visual inspection Chest: Chest palpation & inspection: normal inspection of the chest Resp: Effort & Inspection: normal respiratory effort, able to speak in complete sentences and no respiratory distress Auscultation: clear to auscultation bilaterally Cardio: Jugular venous distension: no JVD Rate: regular rate Rhythm: regular rhythm GI: Inspection: normal to inspection GI Palp: Yes Soft to palpation Auscultation: normal bowel sounds Skin: General skin exam: normal color and no rashes or lesions noted Other: skin tenting on the hands Neuro: General: oriented to person, oriented to place and oriented to time Cranial nerves: Yes Equal, round and reactive pupils present Extrem
[2023-03-03 21:35] LABS: Basophils Absolute Auto 0.02 K/mm3 (0.00-0.10); Basophils Percent Auto 0.2 % (0.0-1.0); Eosinophils Absolute Auto 0.04 K/mm3 (0.02-0.50); Eosinophils Percent Auto 0.3 % (1.0-6.0); Hematocrit 49.3 % (37.0-46.0); Hemoglobin 16.3 g/dL (12.4-15.3); Immature Granulocyte Absolute 0.07 K/mm3 (0.00-0.00); Immature Granulocyte Percent A 0.5 % (0.0-0.0); Lymphocytes Absolute Auto 0.89 K/mm3 (1.10-4.50); Lymphocytes Percent Auto 6.9 % (18.0-42.0); Mean Corpuscular HGB Conc 33.1 g/dL (32.0-36.0); Mean Corpuscular Hemoglobin 28.8 pg (27.0-31.0); Mean Corpuscular Volume 87.1 fL (78.0-102.0); Mean Platelet Volume 10.5 fl (8.7-11.0); Monocytes Absolute Auto 0.67 K/mm3 (0.10-0.90); Monocytes Percent Auto 5.2 % (2.0-11.0); Neutrophils Absolute Auto 11.2 K/mm3 (1.7-7.2); Neutrophils Percent Auto 86.9 % (50.0-70.0); Platelet Count Result 258 K/mm3 (150-420); Red Blood Count 5.66 M/mm3 (4.70-6.10); Red Cell Distribution Width 12.7 % (11.6-14.4); White Blood Count 12.9 K/mm3 (4.8-10.8)
[2023-03-03] MEDS: LACTATED RINGERS 1,000 ML 999 ML IV CONT (21:40)
[2023-03-03 21:53] LABS: Alanine Aminotransferase 26 U/L (16-63); Albumin Level 4.6 g/dL (3.4-5.0); Alkaline Phosphatase 72 U/L (46-116); Anion Gap 15 mmol/L (8-16); Aspartate Amino Transferase 24 U/L (15-37); Bilirubin,Total 0.4 mg/dL (0.00-1.00); Blood Urea Nitrogen 43 mg/dL (7-18); CRP 0.5 mg/dL (0.0-0.9); Calcium 10.6 mg/dL (8.5-10.1); Carbon Dioxide 24 mmol/L (21-32); Chloride 101 mmol/L (98-108); Estimated CRCL calculation 20 ml/min; Estimated Glomerular Filt Rate 31; Glucose 130 mg/dL (70-99); Lipase 114 U/L (16-77); Osmolality Calculated 302 mOsm/kg (285-295); Potassium 4.4 mmol/L (3.5-5.1); Sodium 140 mmol/L (136-145); Total Protein 8.7 g/dL (6.4-8.2); Troponin I 15.7 ng/L (0.00-60.4)
[2023-03-03 22:13] LABS: SARS-CoV-2 RNA PCR Negative (Negative)
[2023-03-03 22:14] LABS: Prothrombin Time 10.5 Seconds (9.50-12.10)
--- NOTE | 2023-03-03 22:17 | PC.NURSE ---
pt is sitting on stretcher talking with daughter at this time. pt denies any needs or complaints at this time. pt is aware of need for ua. will continue to monitor.
[2023-03-03 22:20] LABS: Influenza A QL RT-PCR Negative (Negative); Influenza B QL RT-PCR Negative (Negative); RSV RNA, RT-PCR Negative (Negative)
--- NOTE | 2023-03-03 22:36 | PC.NURSE ---
pt attempted to provide ua specimen without success. erp is notified.
[2023-03-03] MEDS: SODIUM CHLORIDE 0.9% IV 500 ML 999 ML IV CONT (22:39)
--- NOTE | 2023-03-03 23:22 | PC.NURSE ---
another attempt at ua collection, unsuccessful. pt has loose stool. pt reports he is feeling better at this time. pt is talking with daughter at bedside. will continue to monitor.
== END 2023-03-03 23:40 | disposition home or self-care (01) ==
PROVIDERS: Emergency Provider Family Medicine; PCP Family Medicine
DX: R19.7 Diarrhea, unspecified (principal); N17.9 Acute kidney failure, unspecified; I10 Essential (primary) hypertension; E03.9 Hypothyroidism, unspecified; Z87.891 Personal history of nicotine dependence; Z20.822 Contact with and (suspected) exposure to COVID-19
CPT/HCPCS: 36415; 80053; 83605; 83690; 83735; 84484; 85025; 85610; 86140; 87637; 96360; 99284; J7040; J7120

== ENCOUNTER 2023-03-07 12:08 | Outpatient (CLI) | payer MEDICARE, SELFPAY ==
[2023-03-07 12:52] LABS: Alanine Aminotransferase 27 U/L (16-63); Albumin Level 3.9 g/dL (3.4-5.0); Alkaline Phosphatase 59 U/L (46-116); Anion Gap 11 mmol/L (8-16); Aspartate Amino Transferase 20 U/L (15-37); Bilirubin,Total 0.7 mg/dL (0.00-1.00); Blood Urea Nitrogen 46 mg/dL (7-18); Calcium 8.9 mg/dL (8.5-10.1); Carbon Dioxide 23 mmol/L (21-32); Chloride 104 mmol/L (98-108); Estimated Glomerular Filt Rate 46; Glucose 106 mg/dL (70-99); Osmolality Calculated 297 mOsm/kg (285-295); Potassium 4.3 mmol/L (3.5-5.1); Sodium 138 mmol/L (136-145); Total Protein 7.1 g/dL (6.4-8.2)
== END 2023-03-07 12:09 | disposition home or self-care (01) ==
PROVIDERS: PCP Family Medicine; Visit Provider Family Medicine
DX: N17.9 Acute kidney failure, unspecified (principal)
CPT/HCPCS: 36415; 80053